=== PATIENT | female | born 1980 | race Hispanic/Latino ===

== ENCOUNTER 2021-11-20 06:24 | Day surgery (SDC) | payer OTHER ==
[2021-11-18 10:25] VITALS: BP 142/90
[2021-11-18 10:44] LABS: BASOPHILS % (AUTO) 0.8 % (0.0-5.0); EOSINOPHILS % (AUTO) 1.8 % (0.0-8.0); HEMATOCRIT 36.1 % (36-48); LYMPHOCYTES % (AUTO) 24.4 % (21.0-51.0); MEAN CORPUSCULAR HEMOGLOBIN 31.2 pg (27.0-33.0); MEAN CORPUSCULAR HGB CONC 34.1 g/dL (32.0-36.0); MEAN CORPUSCULAR VOLUME 91.6 fL (79-99); MONOCYTES % (AUTO) 6.1 % (3.0-13.0); NEUTROPHILS % (AUTO) 66.3 % (40.0-77.0); PLATELET COUNT (AUTO) 321 K/uL (130-400); RED BLOOD CELL COUNT(AUTO) 3.94 MIL/uL (4.00-5.50); RED CELL DISTRIBUTION WIDTH 12.1 % (11.0-15.5); WHITE BLOOD COUNT (AUTO) 7.7 K/uL (4.8-10.8)
[2021-11-18 10:54] LABS: CREATININE 0.6 mg/dL (0.5-1.5); POTASSIUM 3.7 mmol/L (3.5-5.1)
[2021-11-20] VITALS (13 sets, daily range): BP systolic 112–144; BP diastolic 79–92
[~2021-11-20] VITALS: Ht 165.1 cm; Wt 77.1 kg
[~2021-11-20 06:24] MED LIST: CEFAZOLIN SODIUM 1 GM VIAL IVP SCH
[2021-11-20] MEDS ORDERED: LACTATED RINGERS 1000ML 1,000 ML IV ONE (06:49)
[2021-11-20] MEDS ORDERED: PROPOFOL 10 MG/ML 20ML VIAL IV ONE ×3 (07:53→08:52)
[2021-11-20] MEDS ORDERED: GLYCOPYRROLATE 1 MG/5 ML SYRINGE ONE (07:53)
[2021-11-20] MEDS ORDERED: MIDAZOLAM HCL 1 MG/ML 2ML VIAL ONE (07:54)
[2021-11-20] MEDS ORDERED: FENTANYL CITRATE PF 50 MCG/1 ML 2ML VIAL ONE (07:54)
[2021-11-20] MEDS ORDERED: NEOSTIGMINE 5MG/5ML SYR IV ONE (07:54)
[2021-11-20] MEDS ORDERED: FAMOTIDINE 20MG VIAL IV ONE (07:59)
[2021-11-20] MEDS ORDERED: ROCURONIUM 10MG/1ML SYR 10 MG/ML ML ONE (08:57)
[2021-11-20] MEDS ORDERED: ONDANSETRON 4MG INJ ONE (08:58)
[2021-11-20] MEDS ORDERED: IBUP-2070 PO (09:26)
[2021-11-20] MEDS ORDERED: CEPH500B PO (09:26)
[2021-11-20] MEDS ORDERED: ACET-2079 PO (09:26)
[2021-11-20] MEDS ORDERED: MEPERIDINE-PF 25 MG/ML SYG ONE ×2 (09:38→09:56)
== END 2021-11-20 11:15 | disposition home or self-care (01) ==
LOC: DAH 06:24
PROVIDERS: ATTEND Orthopaedic Surgery
DX: M67.51 Plica syndrome, right knee (principal); M22.41 Chondromalacia patellae, right knee; M62.559 Muscle wasting and atrophy, not elsewhere classified, unspecified thigh; K21.9 Gastro-esophageal reflux disease without esophagitis; Z83.3 Family history of diabetes mellitus; Z82.49 Family history of ischemic heart disease and other diseases of the circulatory system; Z79.899 Other long term (current) drug therapy; W18.39XA Other fall on same level, initial encounter; Y93.89 Activity, other specified; Y92.89 Other specified places as the place of occurrence of the external cause; Y99.0 Civilian activity done for income or pay
CPT/HCPCS: 29875; 36415; 80048; 84703; 85025; 87635; A4215; A4221; A4222; A4223; A4649; A4663; A4930; A5120; A6223; A6450; C9803; J0690; J2175 ×2; J2250; J2405; J2704 ×3; J2710; J3010; J3490 ×2; J7120 ×2